=== PATIENT | female | born 1995 | race Caucasian/White ===

== ENCOUNTER 2016-04-16 00:16 | Emergency (ER) | payer BC ==
[2016-04-16] MEDS ORDERED: Sodium Chloride 0.9% 1,000 ML IV ONE (01:26)
--- NOTE | 2016-04-16 01:39 | EDM.PDOC ---
ED HPI GENERAL MEDICAL PROBLEM - General Chief Complaint: Abdominal Pain Stated Complaint: STOMACH PAIN Time Seen by Provider: 04/16/16 01:18 - History of Present Illness INITIAL COMMENTS - FREE TEXT/NARRATIVE: HISTORY AND PHYSICAL: History of present illness: Patient's 20-year-old white female present to observe abdominal pain this is crampy lower states she is due to start her menses but does not have any problems with dysmenorrhea generally she is on oral contraceptives she denies fever chills she did try to induce vomiting x1 there's been no diarrhea no vaginal discharge or bleeding or urinary symptoms Review of systems: As per history of present illness and below otherwise all systems reviewed and negative. Past medical history: As per history of present illness and as reviewed below otherwise noncontributory. Surgical history: As per history of present illness and as reviewed below otherwise noncontributory. Social history: No reported history of drug or alcohol abuse. Family history: As per history of present illness and as reviewed below otherwise noncontributory. Physical exam: HEENT: Atraumatic, normocephalic, pupils reactive, negative for conjunctival pallor or scleral icterus, mucous membranes moist, throat clear, neck supple, nontender, trachea midline. Lungs: Clear to auscultation, breath sounds equal bilaterally, chest nontender. Heart: S1S2, regular, negative for clicks, rubs, or JVD. Abdomen: Soft, nondistended, no localized tenderness Negative for masses or hepatosplenomegaly. Negative for costovertebral tenderness. Pelvis: Stable nontender. Genitourinary: Deferred. Rectal: Deferred. Extremities: Atraumatic, negative for cords or calf pain. Neurovascular unremarkable. Neuro: Awake, alert, oriented. Cranial nerves II through XII unremarkable. Cerebellum unremarkable. Motor and sensory unremarkable throughout. Exam nonfocal. Diagnostics: CBC CMP UA hCG lipase CT abdomen and pelvis Therapeutics: Normal saline 1 L bolus Impression: #1 abdominal pain Definitive disposition and diagnosis as appropriate pending reevaluation and review of above. lower abdominal Pain Score (Numeric/FACES): 6 - Related Data Allergies Allergy/AdvReac Type Severity Reaction Status Date / Time No Known Allergies Allergy Verified 04/16/16 01:16 Home Meds: Home Meds Control Pills 1 tab PO DAILY 04/16/16 [History] ED ROS GENERAL - Review of Systems Review Of Systems: ROS reveals no pertinent complaints other than HPI. ED EXAM, GENERAL - Physical Exam Exam: See Below (See dictation) Course - Vital Signs Last Recorded V/S: Last Vital Signs Temp 37.0 C 04/16/16 01:17 Pulse 92 04/16/16 01:17 Resp 16 04/16/16 01:17 BP 139/78 04/16/16 01:17 Pulse Ox 99 04/16/16 01:17 - Orders/Labs/Meds Orders: Active Orders 24 hr Category Date Time Status Abdomen Pelvis wo Cont [CT] Stat Exams 04/16/16 01:26 Taken UA W/MICROSCOPIC [URIN] Stat Lab 04/16/16 01:25 Uncollected Labs: Laboratory Tests 04/16/16 04/16/16 04/16/16 Range/Units 01:45 01:45 01:45 WBC 15.08 H (4.0-11.0) K/uL RBC 4.74 (4.30-5.90) M/uL Hgb 14.2 (12.0-16.0) g/dL Hct 41.8 (36.0-46.0) % MCV 88.2 (80.0-98.0) fL MCH 30.0 (27.0-32.0) pg MCHC 34.0 (31.0-37.0) g/dL RDW Std Deviation 39.5 (28.0-62.0) fl RDW Coeff of Soila 12 (11.0-15.0) % Plt Count 261 (150-400) K/uL MPV 9.80 (7.40-12.00) fL Neut % (Auto) 79.2 (48.0-80.0) % Lymph % (Auto) 9.8 L (16.0-40.0) % Josephine % (Auto) 10.4 (0.0-15.0) % Eos % (Auto) 0.4 (0.0-7.0) % Baso % (Auto) 0.2 (0.0-1.5) % Neut # 11.9 H (1.4-5.7) K/uL Lymph # 1.5 (0.6-2.4) K/uL Josephine # 1.6 H (0.0-0.8) K/uL Eos # 0.1 (0.0-0.7) K/uL Baso # 0.0 (0.0-0.1) K/uL Nucleated RBC % 0.0 /100WBC Nucleated RBCs # 0 K/uL Sodium 140 (136-146) mmol/L Potassium 3.9 (3.5-5.1) mmol/L Chloride 108 (98-110) mmol/L Carbon Dioxide 23 (21-31) mmol/L BUN 10 (6.0-23.0) mg/dL Creatinine 0.8 (0.6-1.5) mg/dL Est Cr Clr Drug Dosing 103.26 mL/min Estimated GFR (MDRD) > 60.0 ml/min Glucose 120 H (60-110) mg/dL Calcium 8.9 (8.8-10.8) mg/dL Total Bilirubin 0.6 (0.1-1.5) mg/dL AST 19 (5-40) IU/L ALT 15 (8-54) IU/L Alkaline Phosphatase 54 (40-150) Total Protein 7.3 (6.0-8.0) g/dL Albumin 3.9 (3.5-5.0) g/dL Globulin 3.4 (2.0-3.5) g/dL Albumin/Globulin Ratio 1.1 L (1.3-2.8) Lipase 39 (7-80) U/L HCG, Qual NEGATIVE (NEG) Meds: Medications Discontinued Medications Generic Name Dose Route Start Last Admin Trade Name Freq PRN Reason Stop Dose Admin Sodium Chloride 1,000 mls @ 999 mls/hr 04/16/16 01:26 04/16/16 01:50 Normal Saline IV 04/16/16 02:26 999 mls/hr STAT ONE Administration Ketorolac Tromethamine 30 mg 04/16/16 02:05 04/16/16 02:12 Toradol IVPUSH 04/16/16 02:06 30 mg ONETIME ONE Administration Ondansetron HCl 4 mg 04/16/16 02:05 04/16/16 02:10 Zofran IVPUSH 04/16/16 02:06 4 mg ONETIME ONE Administration Departure - Departure Time of Disposition: 02:56 Disposition: Home, Self-Care 01 Condition: good Clinical Impression: Abdominal pain Forms: ED Department Discharge Additional Instructions: The following information is given to patients seen in the emergency department who are being discharged to home. This information is to outline your options for follow-up care. We provide all patients seen in our emergency department with a follow-up referral. The need for follow-up, as well as the timing and circumstances, are variable depending upon the specifics of your emergency department visit. If you don't have a primary care physician on staff, we will provide you with a referral. We always advise you to contact your personal physician following an emergency department visit to inform them of the circumstance of the visit and for follow-up with them and/or the need for any referrals to a consulting specialist. The emergency department will also refer you to a specialist when appropriate. This referral assures that you have the opportunity for followup care with a specialist. All of these measure are taken in an effort to provide you with optimal care, which includes your followup. Under all circumstances we always encourage you to contact your private physician who remains a resource for coordinating your care. When calling for followup care, please make the office aware that this follow-up is from your recent emergency room visit. If for any reason you are refused follow-up, please contact the [facility] emergency department at and asked to speak to the emergency department charge nurse. Followup primary medical doctor one to 2 days return as needed as discussed - My Orders Last 24 Hours: My Active Orders 04/16/16 01:25 UA W/MICROSCOPIC [URIN] Stat 04/16/16 01:26 Abdomen Pelvis wo Cont [CT] Stat - Assessment/Plan Last 24 Hours: My Active Orders 04/16/16 01:25 UA W/MICROSCOPIC [URIN] Stat 04/16/16 01:26 Abdomen Pelvis wo Cont [CT] Stat
[2016-04-16] MEDS ORDERED: Ketorolac 30 MG/ML SDV IVPUSH ONE (02:05)
[2016-04-16] MEDS ORDERED: Ondansetron 4 MG/2 ML SDV IVPUSH ONE (02:05)
[2016-04-16 02:10] LABS: CHLORIDE,CL 108 mmol/L (98-110); SODIUM,NA 140 mmol/L (136-146)
[2016-04-16 03:21] VITALS: BP 122/69
--- NOTE | 2016-04-16 15:16 | CT ---
EXAM DATE: 04/16/16 PATIENT'S AGE: 20 Patient: VICENTE SOLANO Facility: [place], [place] Site . Site : 1995 Study: CT Abdomen/Pelvis [id number] 2:31:07 AM Ordering Physician: Nuvia Quiroz Final Report: INDICATION: generalized abd discomfort since after supper last evening TECHNIQUE: CT abdomen and pelvis without contrast. COMPARISON: None FINDINGS: Lower chest: Unremarkable. Liver: Unremarkable. Spleen: Unremarkable. Pancreas: Unremarkable. Gallbladder and bile ducts: Unremarkable. Kidneys: Unremarkable. No kidney or ureteral stones and no hydronephrosis. Adrenal glands: Unremarkable. GI tract: Moderate amount of stool. . Appendix is not visualized l. Vascular structures: Unremarkable. Lymph nodes: Unremarkable. Miscellaneous: Unremarkable. Trace free fluid. Pelvic Organs: Unremarkable. Bones: Unremarkable for age. IMPRESSION: No acute abnormality of the abdomen and pelvis. Moderate amount of stool. Dictated by Jair Yu MD @ 04/16/2016 2:46:26 AM Dictated by: Jair Yu MD @ 04/16/2016 02:46:47 (Electronic Signature) Report Signed by Proxy and Original Signed Document filed in the Medical Record. [facility]
== END 2016-04-16 03:18 | disposition home or self-care (01) ==
LOC: MW.ED 00:16 → MERGE 00:16 → MW.ED 03:18
DX: R10.30 Lower abdominal pain, unspecified (principal)
CPT/HCPCS: 36415; 74176; 80053; 83690; 84703; 85025; 96361; 96372; 96374; 99284; J1885; J2405; J7040

== ENCOUNTER 2020-05-30 22:26 | Observation (INO) | payer BC ==
[2020-05-30] MEDS ORDERED: Labetalol 100 MG/20 ML MDV IVPUSH ONE ×2 (22:51→23:40)
[2020-05-30] MEDS ORDERED: Sodium Chloride 0.9% 2.5 ML Syringe FLUSH PRN (23:29)
[2020-05-30] MEDS ORDERED: Water For Irrigation,Sterile 1,000 ML Container IRR PRN (23:29)
[2020-05-30] MEDS ORDERED: Lidocaine 1% 50 ML MDV INJECT PRN (23:29)
[2020-05-30] MEDS ORDERED: Sodium Chloride 0.9% 10 ML SDV IV PRN (23:29)
[2020-05-30] MEDS ORDERED: Sodium Chloride 0.9% 10 ML Syringe FLUSH PRN (23:29)
[2020-05-30] MEDS ORDERED: Lactated Ringers 1,000 ML IV SCH (23:30)
--- NOTE | 2020-05-31 00:21 | PCM.LDHP ---
L&D History of Present Illness - General Date of Service: 05/31/20 Admit Problem/Dx: Patient Status Order with Admit Dx/Problem 05/30/20 22:50 Patient Status [ADT] Routine 05/30/20 23:29 Patient Status [ADT] Routine Admission Diagnosis/Problem Admission Diagnosis/Problem Source of Information: Patient History Limitations: Reports: No Limitations - History of Present Illness Introduction:: 24yo at 27w4d GA here with uncontrolled blood pressure and proteinuria. She was seen in clinic yesterday for asymptomatic elevated BPs and was started on labetalol 200mg BID to increase to 400mg BID after 3 days. Patient reports her BPs yesterday were ok, 140's/90's, but today her BPs' have all been >170/100, despite taking 400mg of labetatol this afternoon. She denies HDEZ, RUQ pain, and visual change. She reports some shakiness that started a few hours ago. Reports good urine output. has otherwise been unremarkable so far. - Related Data Allergies/Adverse Reactions: Allergies Allergy/AdvReac Type Severity Reaction Status Date / Time No Known Allergies Allergy Verified 05/21/20 19:13 Home Medications: Home Meds Acetaminophen [Tylenol Extra Strength] 1 - 2 tab PO ASDIRECTED PRN 05/21/20 [History] Pnv No.95/Ferrous Fum/Folic AC [ Tablet] 1 tab PO DAILY 05/21/20 [History] Aspirin [Aspirin EC] 1 tab PO DAILY 05/30/20 [History] Labetalol HCl [Labetalol] 200 mg PO DAILY 05/30/20 [History] Past Medical History HEENT History: Reports: None Cardiovascular History: Reports: None Respiratory History: Reports: None Gastrointestinal History: Reports: None Genitourinary History: Reports: None 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 Neurological History: Reports: None Psychiatric History: Reports: None Endocrine/Metabolic History: Reports: None Dermatologic History: Reports: None - Infectious Disease History Infectious Disease History: Reports: None Social & Family History - Family History Family Medical History: No Pertinent Family History H&P Review of Systems - Review of Systems: Review Of Systems: See Below General: Reports: No Symptoms HEENT: Reports: No Symptoms Pulmonary: Reports: Shortness of Breath Cardiovascular: Reports: No Symptoms Gastrointestinal: Reports: No Symptoms Genitourinary: Reports: No Symptoms Musculoskeletal: Reports: No Symptoms Skin: Reports: No Symptoms Psychiatric: Reports: No Symptoms Neurological: Reports: Other Hematologic/Lymphatic: Reports: No Symptoms Immunologic: Reports: No Symptoms L&D Exam - Exam Exam: See Below - Vital Signs Weight: 79.379 kg - OB Specific Contraction Intensity: None Movement: Active Heart Tones: Present Heart Tones per Min: 141 Heart Rate (FHR) Variability: Moderate (6-25 bmp) - Exam General: Alert, Oriented HEENT: Conjunctiva Clear Neck: Supple Lungs: Clear to Auscultation, Normal Respiratory Effort Cardiovascular: Regular Rate, Regular Rhythm GI/Abdominal Exam: Soft, Non-Tender Extremities: Pedal Edema Skin: Warm, Dry Neurological: Reflexes Equal Bilateral Psychiatric: Alert, Normal Affect, Normal Mood - Patient Data Lab Results Last 24 hrs: Laboratory Results - last 24 hr 05/30/20 Range/Units 23:15 WBC 11.15 H (4.0-11.0) K/uL RBC 3.93 L (4.30-5.90) M/uL Hgb 12.6 (12.0-16.0) g/dL Hct 35.5 L (36.0-46.0) % MCV 90.3 (80.0-98.0) fL MCH 32.1 H (27.0-32.0) pg MCHC 35.5 (31.0-37.0) g/dL RDW Std Deviation 41.9 (28.0-62.0) fl RDW Coeff of Soila 13 (11.0-15.0) % Plt Count 231 (150-400) K/uL MPV 12.00 (7.40-12.00) fL Nucleated RBC % 0.0 /100WBC Nucleated RBCs # 0 K/uL Result Diagrams: 05/30/20 23:15 05/30/20 23:15 - Problem List (1) Pre-eclampsia affecting , antepartum SNOMED Code(s): 948551268, 408450265 ICD Code: O14.90 - UNSPECIFIED PRE-ECLAMPSIA, UNSPECIFIED TRIMESTER Status: Acute Priority: High Current Visit: Yes Problem List Initiated/Reviewed/Updated: Yes Orders Last 24hrs: Active Orders 24 hr Category Date Time Status Patient Status [ADT] Routine ADT 05/30/20 23:29 Active Heart Tones [RC] CONTINUOUS Care 05/30/20 23:29 Active Non Stress Test [RC] PER UNIT ROUTINE Care 05/30/20 22:50 Active May Shower [RC] ASDIRECTED Care 05/30/20 23:29 Active Notify Provider [RC] PRN Care 05/30/20 23:29 Active Up ad Laquita [RC] ASDIRECTED Care 05/30/20 22:50 Active Up ad Laquita [RC] ASDIRECTED Care 05/30/20 23:29 Active Vaginal Exam [RC] Click to Edit Care 05/30/20 22:50 Active Vaginal Exam [RC] PRN Care 05/30/20 23:29 Active Vital Signs [RC] PER UNIT ROUTINE Care 05/30/20 22:50 Active Vital Signs [RC] PER UNIT ROUTINE Care 05/30/20 23:29 Active CMP [COMPREHENSIVE METABOLIC PN,CMP] [CHEM] Routine Lab 05/30/20 23:15 Received LACTATE DEHYDROGENASE,LDH [CHEM] Routine Lab 05/30/20 23:15 Received URIC ACID [CHEM] Routine Lab 05/30/20 23:15 Received Lactated Ringers [Ringers, Lactated] 1,000 ml Med 05/30/20 23:30 Active IV ASDIRECTED Lidocaine 1% [Xylocaine 1%] Med 05/30/20 23:29 Active 50 ml INJECT ONETIME PRN Sodium Chloride 0.9% [Normal Saline] Med 05/30/20 23:29 Active 10 ml IV ASDIRECTED PRN Sodium Chloride 0.9% [Saline Flush] Med 05/30/20 23:29 Active 10 ml FLUSH ASDIRECTED PRN Sodium Chloride 0.9% [Saline Flush] Med 05/30/20 23:29 Active 2.5 ml FLUSH ASDIRECTED PRN Water For Irrigation,Sterile [Sterile Water for Med 05/30/20 23:29 Active Irrigation] 1,000 ml IRR ASDIRECTED PRN Scalp Electrode [WOMSER] Per Unit Routine Oth 05/30/20 23:29 Ordered Peripheral IV Insertion Adult [OM.PC] Routine Oth 05/30/20 23:29 Ordered Resuscitation Status Routine Resus Stat 05/30/20 22:50 Ordered Medication Orders Lactated Ringer's (Ringers, Lactated) 1,000 mls @ 50 mls/hr IV ASDIRECTED NIKITA Lidocaine HCl (Lidocaine 1% 50 Ml Mdv) 50 ml INJECT ONETIME PRN PRN Reason: Laceration repair Sodium Chloride (Sodium Chloride 0.9% 10 Ml Syringe) 10 ml FLUSH ASDIRECTED PRN PRN Reason: Keep Vein Open Sodium Chloride (Sodium Chloride 0.9% 2.5 Ml Syringe) 2.5 ml FLUSH ASDIRECTED PRN PRN Reason: Keep Vein Open Sodium Chloride (Sodium Chloride 0.9% 10 Ml Sdv) 10 ml IV ASDIRECTED PRN PRN Reason: IV Use Sterile Water (Water For Irrigation,Sterile 1,000 Ml Container) 1,000 ml IRR ASDIRECTED PRN PRN Reason: delivery Assessment/Plan Comment:: Discussed diagnosis and possible complications with patient and . Discussed management and treatment. Answered questions. Suggested controlling BPs first, while monitoring signs and Sxs. - Started IV labetalol protocol. Continuous monitoring wellbeing CMP, CBC, Uric acid and LDH sent. Platelets at 231, remaining of the lab pending. Once BP under controlled, will evaluate if patient needs to be started on Mg now, pending results of lab work-up. Plan for possible transfer to [place] or [facility] (higher level NICU) once patient stable. Mg injections if patient develop a seizure. Patient and agreeable with the plan
[2020-05-31] MEDS ORDERED: Labetalol 100 MG/20 ML MDV IVPUSH ONE (00:34)
[2020-05-31 00:40] LABS: BLOOD UREA NITROGEN,BUN 10 mg/dL (7.0-18.0); CARBON DIOXIDE,CO2 21.8 mmol/L (21.0-32.0); CHLORIDE,CL 105 mmol/L (98-107); GLUCOSE RANDOM 72 mg/dL (74-106); POTASSIUM,K 4.3 mmol/L (3.5-5.1); SODIUM,NA 138 mmol/L (136-145)
[2020-05-31] MEDS ORDERED: NIFEdipine 30 MG Tab.ER PO ONE (01:34)
[2020-05-31] MEDS ORDERED: Betamethasone Acetate/Betamethasone Sod Phosphate 30 MG/5 ML MDV IM ONE (09:06)
[2020-05-31] MEDS ORDERED: Magnesium Sulfate/Water 4 GM in Premix Bag 1 BAG IV ONE (09:19)
[2020-05-31] MEDS ORDERED: Calcium Gluconate 10% 1 GM/10 ML SDV IV PRN (09:19)
[2020-05-31] MEDS: Magnesium Sulfate/Water 20 GM/500 ML BAG IV SCH ×2 (10:39→19:23)
--- NOTE | 2020-05-31 11:30 | US ---
INDICATION: follow-up placenta. COMPARISON: 09 April 2020. FINDINGS: Cervix is closed 4.2 cm without funneling. Vertex presentation of intrauterine . Three-vessel cord. Placenta is anterior roughly 5.3 cm from the internal cervical os. It appears sonographically unremarkable. M-mode heart rate 143 beats per minute. The single deepest pocket amniotic fluid 5.1 cm. Symmetric growth with composite estimated gestational age 27 weeks 1 day and estimated date of delivery 29 August 2020. Estimated weight 1023 g. IMPRESSION: 1. Unremarkable appearing anterior placenta. 2. 27 week 1 day intrauterine gestation with estimated date of delivery August. Appropriate interval growth from comparison. Dictated by Anthony Barnett MD @ 05/31/2020 11:28:[address] Anthony Barnett @ May 31 2020 11:28AM
[2020-05-31 17:57] LABS: BLOOD UREA NITROGEN,BUN 14 mg/dL (7.0-18.0); CARBON DIOXIDE,CO2 20.3 mmol/L (21.0-32.0); CHLORIDE,CL 102 mmol/L (98-107); GLUCOSE RANDOM 124 mg/dL (74-106); POTASSIUM,K 4.6 mmol/L (3.5-5.1); SODIUM,NA 134 mmol/L (136-145)
[2020-05-31] MEDS: NIFEdipine 30 MG Tab.ER PO SCH (20:42)
[2020-06-01] MEDS: Magnesium Sulfate/Water 20 GM/500 ML BAG IV SCH (05:05)
[2020-06-01] MEDS: NIFEdipine 30 MG Tab.ER PO SCH (08:50)
[2020-06-01 08:51] VITALS: BP 135/75
[2020-06-01 09:26] LABS: BLOOD UREA NITROGEN,BUN 16 mg/dL (7.0-18.0); CARBON DIOXIDE,CO2 18.1 mmol/L (21.0-32.0); CHLORIDE,CL 99 mmol/L (98-107); GLUCOSE RANDOM 103 mg/dL (74-106); POTASSIUM,K 4.5 mmol/L (3.5-5.1); SODIUM,NA 130 mmol/L (136-145)
[2020-06-01] MEDS ORDERED: Betamethasone Acetate/Betamethasone Sod Phosphate 30 MG/5 ML MDV IM ONE (10:01)
--- NOTE | 2020-06-01 12:26 | PCM.PNLD ---
Labor Progress Note - VS & Meds Vital Signs: Last Vital Signs Temp Pulse Resp BP 135/75 06/01/20 08:50 Pulse Ox Active Medications: Current Medications Calcium Gluconate (Calcium Gluconate 10% 1 Gm/10 Ml Sdv) 1 gm IV ASDIRECTED PRN PRN Reason: respiratory distress Lactated Ringer's (Ringers, Lactated) 1,000 mls @ 50 mls/hr IV ASDIRECTED [facility] Last Infusion: 05/31/20 10:36 Dose: 3 mls/hr Documented by: Magnesium Sulfate (Magnesium Sulfate In Water 20 Gm/500 Ml) 20 gm in 500 mls @ 50 mls/hr IV ASDIRECTED [facility] Last Admin: 06/01/20 05:05 Dose: 1 gm/hr, 25 mls/hr Documented by: Lidocaine HCl (Lidocaine 1% 50 Ml Mdv) 50 ml INJECT ONETIME PRN PRN Reason: Laceration repair Nifedipine (Nifedipine 30 Mg Tab.Er) 60 mg PO BID [facility] Last Admin: 06/01/20 08:50 Dose: 60 mg Documented by: Sodium Chloride (Sodium Chloride 0.9% 10 Ml Syringe) 10 ml FLUSH ASDIRECTED PRN PRN Reason: Keep Vein Open Sodium Chloride (Sodium Chloride 0.9% 2.5 Ml Syringe) 2.5 ml FLUSH ASDIRECTED PRN PRN Reason: Keep Vein Open Sodium Chloride (Sodium Chloride 0.9% 10 Ml Sdv) 10 ml IV ASDIRECTED PRN PRN Reason: IV Use Sterile Water (Water For Irrigation,Sterile 1,000 Ml Container) 1,000 ml IRR ASDIRECTED PRN PRN Reason: delivery Discontinued Medications Betamethasone Acet/Betameth SodPhos (Betamethasone Acetate/Betamethasone Sod Phosphate 30 Mg/5 Ml Mdv) 12 mg IM ONETIME ONE Stop: 05/31/20 09:07 Last Admin: 05/31/20 10:09 Dose: 2 ml Documented by: Betamethasone Acet/Betameth SodPhos (Betamethasone Acetate/Betamethasone Sod Phosphate 30 Mg/5 Ml Mdv) 12 mg IM ONETIME ONE Stop: 06/01/20 10:02 Last Admin: 06/01/20 10:18 Dose: 2 ml Documented by: Magnesium Sulfate 4 gm/ Premix 100 mls @ 300 mls/hr IV BOLUS ONE Stop: 05/31/20 09:38 Last Admin: 05/31/20 10:18 Dose: 300 mls/hr Documented by: Labetalol HCl (Labetalol 100 Mg/20 Ml Mdv) 20 mg IVPUSH ONETIME ONE; Protocol Stop: 05/30/20 22:52 Last Admin: 05/30/20 23:20 Dose: 20 mg Documented by: Labetalol HCl (Labetalol 100 Mg/20 Ml Mdv) 40 mg IVPUSH ONETIME ONE; Protocol Stop: 05/30/20 23:41 Last Admin: 05/30/20 23:41 Dose: 40 mg Documented by: Labetalol HCl (Labetalol 100 Mg/20 Ml Mdv) 80 mg IVPUSH ONETIME ONE; Protocol Stop: 05/31/20 00:35 Last Admin: 05/31/20 00:49 Dose: 80 mg Documented by: Nifedipine (Nifedipine 30 Mg Tab.Er) 60 mg PO ONETIME ONE Stop: 05/31/20 01:35 Last Admin: 05/31/20 02:01 Dose: 60 mg Documented by: - Uterine Contractions Contraction Intensity: None - Monitoring Heart Rate (FHR) Variability: Moderate (6-25 bmp) - Labor Progress (Free Text) Labor Progress: the pt is tranfer for detail see my dictated note.
--- NOTE | 2020-06-01 12:29 | PCM.DCSUM1 ---
Discharge Summary - Hospital Course Diagnosis: Stroke: No - Discharge Data Discharge Date: 06/01/20 Discharge Disposition: Home, Self-Care 01 Condition: Good - Referral to Home Health Primary Care Physician: PCP None - Patient Instructions Diet: Usual Diet as Tolerated Activity: As Tolerated - Discharge Plan Home Medications: Home Meds Acetaminophen [Tylenol Extra Strength] 1 - 2 tab PO ASDIRECTED PRN 05/21/20 [History] Pnv No.95/Ferrous Fum/Folic AC [ Tablet] 1 tab PO DAILY 05/21/20 [History] Aspirin [Aspirin EC] 1 tab PO DAILY 05/30/20 [History] Labetalol HCl [Labetalol] 200 mg PO DAILY 05/30/20 [History] - Discharge Summary/Plan Comment DC Time >30 min.: Yes - General Info Date of Service: 06/01/20 Functional Status: Reports: Pain Controlled - Review of Systems General: Reports: No Symptoms HEENT: Reports: No Symptoms Pulmonary: Reports: No Symptoms Cardiovascular: Reports: No Symptoms Gastrointestinal: Reports: No Symptoms Genitourinary: Reports: No Symptoms Musculoskeletal: Reports: No Symptoms Skin: Reports: No Symptoms Neurological: Reports: No Symptoms Psychiatric: Reports: No Symptoms - Patient Data Vitals - Most Recent: Last Vital Signs Temp Pulse Resp BP 135/75 06/01/20 08:50 Pulse Ox Weight - Most Recent: 81.647 kg Lab Results - Last 24 hrs: Laboratory Results - last 24 hr 05/31/20 05/31/20 05/31/20 Range/Units 14:47 17:10 17:10 WBC 11.89 H (4.0-11.0) K/uL RBC 4.62 (4.30-5.90) M/uL Hgb 14.7 (12.0-16.0) g/dL Hct 41.7 (36.0-46.0) % MCV 90.3 (80.0-98.0) fL MCH 31.8 (27.0-32.0) pg MCHC 35.3 (31.0-37.0) g/dL RDW Std Deviation 42.1 (28.0-62.0) fl RDW Coeff of Soila 13 (11.0-15.0) % Plt Count 270 (150-400) K/uL MPV 11.30 (7.40-12.00) fL Nucleated RBC % 0.0 /100WBC Nucleated RBCs # 0 K/uL Sodium 134 L (136-145) mmol/L Potassium 4.6 (3.5-5.1) mmol/L Chloride 102 (98-107) mmol/L Carbon Dioxide 20.3 L (21.0-32.0) mmol/L BUN 14 (7.0-18.0) mg/dL Creatinine 0.8 (0.6-1.0) mg/dL Est Cr Clr Drug Dosing 103.63 mL/min Estimated GFR (MDRD) > 60.0 ml/min Glucose 124 H (74-106) mg/dL Uric Acid 6.1 (2.6-7.2) mg/dL Calcium 8.8 (8.5-10.1) mg/dL Magnesium 5.3 H (1.8-2.4) mg/dL Total Bilirubin 0.6 (0.2-1.0) mg/dL AST 27 (15-37) IU/L ALT 34 (14-63) IU/L Alkaline Phosphatase 114 (46-116) U/L Total Protein 6.7 (6.4-8.2) g/dL Albumin 2.6 L (3.4-5.0) g/dL Globulin 4.1 H (2.6-4.0) g/dL Albumin/Globulin Ratio 0.6 L (0.9-1.6) Ur Collection Duration Urine Total Volume (800-1800) Ur Total Protein Conc (0-14) mg/dL Ur Total Protein 24 Hr mg/24HRS 05/31/20 06/01/20 06/01/20 Range/Units 20:37 02:48 07:23 WBC (4.0-11.0) K/uL RBC (4.30-5.90) M/uL Hgb (12.0-16.0) g/dL Hct (36.0-46.0) % MCV (80.0-98.0) fL MCH (27.0-32.0) pg MCHC (31.0-37.0) g/dL RDW Std Deviation (28.0-62.0) fl RDW Coeff of Soila (11.0-15.0) % Plt Count (150-400) K/uL MPV (7.40-12.00) fL Nucleated RBC % /100WBC Nucleated RBCs # K/uL Sodium (136-145) mmol/L Potassium (3.5-5.1) mmol/L Chloride (98-107) mmol/L Carbon Dioxide (21.0-32.0) mmol/L BUN (7.0-18.0) mg/dL Creatinine (0.6-1.0) mg/dL Est Cr Clr Drug Dosing mL/min Estimated GFR (MDRD) ml/min Glucose (74-106) mg/dL Uric Acid (2.6-7.2) mg/dL Calcium (8.5-10.1) mg/dL Magnesium 6.3 H 7.0 H (1.8-2.4) mg/dL Total Bilirubin (0.2-1.0) mg/dL AST (15-37) IU/L ALT (14-63) IU/L Alkaline Phosphatase (46-116) U/L Total Protein (6.4-8.2) g/dL Albumin (3.4-5.0) g/dL Globulin (2.6-4.0) g/dL Albumin/Globulin Ratio (0.9-1.6) Ur Collection Duration 24 Urine Total Volume 4025 H (800-1800) Ur Total Protein Conc 82.4 H (0-14) mg/dL Ur Total Protein 24 Hr 3316.6 mg/24HRS 06/01/20 06/01/20 06/01/20 Range/Units 08:49 08:49 08:49 WBC 14.83 H (4.0-11.0) K/uL RBC 4.22 L (4.30-5.90) M/uL Hgb 13.4 (12.0-16.0) g/dL Hct 38.3 (36.0-46.0) % MCV 90.8 (80.0-98.0) fL MCH 31.8 (27.0-32.0) pg MCHC 35.0 (31.0-37.0) g/dL RDW Std Deviation 42.2 (28.0-62.0) fl RDW Coeff of Soila 13 (11.0-15.0) % Plt Count 289 (150-400) K/uL MPV 11.00 (7.40-12.00) fL Nucleated RBC % 0.0 /100WBC Nucleated RBCs # 0 K/uL Sodium 130 L (136-145) mmol/L Potassium 4.5 (3.5-5.1) mmol/L Chloride 99 (98-107) mmol/L Carbon Dioxide 18.1 L (21.0-32.0) mmol/L BUN 16 (7.0-18.0) mg/dL Creatinine 0.8 (0.6-1.0) mg/dL Est Cr Clr Drug Dosing 103.63 mL/min Estimated GFR (MDRD) > 60.0 ml/min Glucose 103 (74-106) mg/dL Uric Acid 6.7 (2.6-7.2) mg/dL Calcium 7.5 L (8.5-10.1) mg/dL Magnesium 6.2 H (1.8-2.4) mg/dL Total Bilirubin 0.5 (0.2-1.0) mg/dL AST 26 (15-37) IU/L ALT 40 (14-63) IU/L Alkaline Phosphatase 106 (46-116) U/L Total Protein 5.9 L (6.4-8.2) g/dL Albumin 2.6 L (3.4-5.0) g/dL Globulin 3.3 (2.6-4.0) g/dL Albumin/Globulin Ratio 0.8 L (0.9-1.6) Ur Collection Duration Urine Total Volume (800-1800) Ur Total Protein Conc (0-14) mg/dL Ur Total Protein 24 Hr mg/24HRS Med Orders - Current: Current Medications Calcium Gluconate (Calcium Gluconate 10% 1 Gm/10 Ml Sdv) 1 gm IV ASDIRECTED PRN PRN Reason: respiratory distress Lactated Ringer's (Ringers, Lactated) 1,000 mls @ 50 mls/hr IV ASDIRECTED [facility] Last Infusion: 05/31/20 10:36 Dose: 3 mls/hr Documented by: Magnesium Sulfate (Magnesium Sulfate In Water 20 Gm/500 Ml) 20 gm in 500 mls @ 50 mls/hr IV ASDIRECTED NIKITA Last Admin: 06/01/20 05:05 Dose: 1 gm/hr, 25 mls/hr Documented by: Lidocaine HCl (Lidocaine 1% 50 Ml Mdv) 50 ml INJECT ONETIME PRN PRN Reason: Laceration repair Nifedipine (Nifedipine 30 Mg Tab.Er) 60 mg PO BID NIKITA Last Admin: 06/01/20 08:50 Dose: 60 mg Documented by: Sodium Chloride (Sodium Chloride 0.9% 10 Ml Syringe) 10 ml FLUSH ASDIRECTED PRN PRN Reason: Keep Vein Open Sodium Chloride (Sodium Chloride 0.9% 2.5 Ml Syringe) 2.5 ml FLUSH ASDIRECTED PRN PRN Reason: Keep Vein Open Sodium Chloride (Sodium Chloride 0.9% 10 Ml Sdv) 10 ml IV ASDIRECTED PRN PRN Reason: IV Use Sterile Water (Water For Irrigation,Sterile 1,000 Ml Container) 1,000 ml IRR ASDIRECTED PRN PRN Reason: delivery Discontinued Medications Betamethasone Acet/Betameth SodPhos (Betamethasone Acetate/Betamethasone Sod Phosphate 30 Mg/5 Ml Mdv) 12 mg IM ONETIME ONE Stop: 05/31/20 09:07 Last Admin: 05/31/20 10:09 Dose: 2 ml Documented by: Betamethasone Acet/Betameth SodPhos (Betamethasone Acetate/Betamethasone Sod Phosphate 30 Mg/5 Ml Mdv) 12 mg IM ONETIME ONE Stop: 06/01/20 10:02 Last Admin: 06/01/20 10:18 Dose: 2 ml Documented by: Magnesium Sulfate 4 gm/ Premix 100 mls @ 300 mls/hr IV BOLUS ONE Stop: 05/31/20 09:38 Last Admin: 05/31/20 10:18 Dose: 300 mls/hr Documented by: Labetalol HCl (Labetalol 100 Mg/20 Ml Mdv) 20 mg IVPUSH ONETIME ONE; Protocol Stop: 05/30/20 22:52 Last Admin: 05/30/20 23:20 Dose: 20 mg Documented by: Labetalol HCl (Labetalol 100 Mg/20 Ml Mdv) 40 mg IVPUSH ONETIME ONE; Protocol Stop: 05/30/20 23:41 Last Admin: 05/30/20 23:41 Dose: 40 mg Documented by: Labetalol HCl (Labetalol 100 Mg/20 Ml Mdv) 80 mg IVPUSH ONETIME ONE; Protocol Stop: 05/31/20 00:35 Last Admin: 05/31/20 00:49 Dose: 80 mg Documented by: Nifedipine (Nifedipine 30 Mg Tab.Er) 60 mg PO ONETIME ONE Stop: 05/31/20 01:35 Last Admin: 05/31/20 02:01 Dose: 60 mg Documented by: - Exam General: Reports: Alert, Oriented HEENT: Reports: Pupils Equal, Pupils Reactive, EOMI, Mucous Membr. Moist/Stephan Neck: Reports: Supple Lungs: Reports: Clear to Auscultation, Normal Respiratory Effort Cardiovascular: Reports: Regular Rate, Regular Rhythm GI/Abdominal Exam: Normal Bowel Sounds, Soft, Non-Tender, No Organomegaly, No Distention, No Abnormal Bruit, No Mass, Pelvis Stable (Female) Exam: Normal External Exam, Normal Speculum Exam, Normal Bimanual Exam Rectal (Female) Exam: Normal Exam, Normal Rectal Tone Back Exam: Reports: Normal Inspection, Full Range of Motion Extremities: Normal Inspection, Normal Range of Motion, Non-Tender, No Pedal Edema, Normal Capillary Refill Skin: Reports: Warm, Dry, Intact Wound/Incisions: Reports: Healing Well Neurological: Reports: No New Focal Deficit Psy/Mental Status: Reports: Alert, Normal Affect, Normal Mood
--- NOTE | 2020-06-01 17:18 | CONS ---
DATE OF CONSULTATION: 06/01/2020 DATE OF : 1995 PRIMARY CARE PHYSICIAN: None PCP Ms. Val Foley is a 24-year-old. She is primigravida. She is 25, +6 weeks. She is followed in our office in this . She had no risk factor other than the fact that she has a family history of elevated blood pressures. She was admitted to the hospital 36 hours ago with an elevated blood pressure. Initially, at the time of admission, her blood pressure was 160/100 and 155/95. The patient started on antihypertensive medication. She initially was managed by Dr. Parker. She was started on Procardia 60 mg p.o. b.i.d. and she needed occasional shot of labetalol of 200 mg IV to control her blood pressure. I took over management of this patient yesterday at 8 in the morning, and at the time of me taking care of her, her vital signs were stable, heart rate was reactive, and her blood pressure was quiescent, ranging anywhere between 145 over 85 to 155 over 95. There was mild swelling on her legs. Other than that, she had no clonus. Reflexes +1. Her initial preeclampsia lab work was essentially normal. So, while I discussed these finding with the patient and my plan on her to start her on magnesium sulfate as per protocol and also give her steroid as per protocol, and then we will repeat her labs every 6 hours for the next 24 hour. We already initiated a 24-hour urine collection for protein, and we are awaiting the result of the protein in the urine to make a final decision. This morning, on June 01, I re-evaluated the patient. Her vital signs were quiescent. Her blood pressure is in the upper normal limit. Her reflexes are +1. There is mild increase in the swelling in her legs and in her face, but her lab work is normal and the 24-hour urine collection of protein shows significant discharge of protein in her urine. Total is 3316 mg per 24 hours. This definitely is significant and will indicate that the patient possibly needed to be delivered. I consulted with Dr. Camarillo, the perinatologist in [place]. The patient expressed her desire if she would be transferred to [place]. I presented the case to Dr. Camarillo, and Dr. Camarillo agreed that the patient needed to be transferred to tertiary center and needed to be managed in a hospital setting. Hopefully, until 24 weeks before she can deliver, but if her condition is worsened, she may have to be delivered early. I contacted Dr. Armstrong who is an senior technical architect on-call in [facility] in [place] and presented the case. Dr. Armstrong was gracious enough to accept the patient, and the patient will be transferred to her as soon as possible, and Dr. Camarillo will be consulted and will be involved in the management of this patient. SHYAM / HEATH /[id number]
== END 2020-06-01 13:10 ==
LOC: MW.OB 22:26 → MW.OBCHECK 22:26 → MW.OB 23:29 → MW.OBCHECK 23:29
PROVIDERS: ADMIT Obstetrics & Gynecology Obstetrics; ATTEND Obstetrics & Gynecology Obstetrics
DX: O14.92 Unspecified pre-eclampsia, second trimester (principal); O16.2 Unspecified maternal hypertension, second trimester; Z3A.27 27 weeks gestation of pregnancy; Z79.899 Other long term (current) drug therapy; Z79.82 Long term (current) use of aspirin
CPT/HCPCS: 36415; 76815; 80053; 83615; 83735; 84156; 84550; 85027; 86850; 86900; 86901; 87635; A9270; J0702; J3475; J3490; J7120; U0002

== ENCOUNTER 2020-08-23 21:45 | Emergency (ER) | payer BC, SELFPAY ==
[2020-08-23] MEDS ORDERED: Labetalol 100 MG/20 ML MDV IVPUSH ONE (22:21)
[2020-08-23] MEDS ORDERED: Magnesium Sulfate/Water 4 GM in Premix Bag 1 BAG IV ONE (22:22)
[2020-08-23] MEDS ORDERED: Magnesium Sulfate/Water 2 GM in Premix Bag 2 BAG IV ONE (22:35)
[2020-08-23] MEDS ORDERED: Magnesium Sulfate/Water 2 GM in Premix Bag 1 BAG IV ONE (23:28)
[2020-08-23 23:30] LABS: BLOOD UREA NITROGEN,BUN 15 mg/dL (7.0-18.0); CHLORIDE,CL 102 mmol/L (98-107); GLUCOSE RANDOM 90 mg/dL (74-106); POTASSIUM,K 3.6 mmol/L (3.5-5.1); SODIUM,NA 137 mmol/L (136-145)
[2020-08-23 23:52] VITALS: BP 130/80; PULSE 80
--- NOTE | 2020-08-24 | EDM.PDOC ---
ED HPI GENERAL MEDICAL PROBLEM - General Chief Complaint: Cardiovascular Problem Stated Complaint: HIGH BP Time Seen by Provider: 08/23/20 22:21 - History of Present Illness INITIAL COMMENTS - FREE TEXT/NARRATIVE: CHIEF COMPLAINT(S): Hypertension HISTORY OF PRESENT ILLNESS: This is a 25-year-old woman with a recent complicated by preeclampsia with delivery and May 2020 who comes to the emergency department with a chief complaint of hypertension. The patient states that prior to the patient did not have any blood pressure issues. She states that during her she had preeclampsia where they did induce labor. After that she was put on labetalol and Procardia at max doses and was recently weaned down and off for approximately 1 week. She states that her fitness manager told her to check her blood pressure randomly throughout the week and day and if it got high to come to the emergency department. She states that she feels some weakness but other than that she denies any headache, chest pain, shortness of breath, abdominal pain, nausea or vomiting. She denies any decreased urination. She states that today prior to arrival she took her blood pressure and it was elevated so they came to the emergency department. She states that she took 100 mg of labetalol prior to arrival. REVIEW OF SYSTEMS: Constitutional: Denies fever, chills. Eyes: Denies eye pain Ears, Nose, Mouth, & Throat: Denies earache Cardiovascular: Denies chest pain, lower extremity edema Respiratory: Denies shortness of breath Gastrointestinal: Denies Nausea, vomiting, diarrhea, hematochezia. Genitourinary: Denies hematuria Skin:Denies a rash MSK: Denies joint pain Neurological: Denies blurred vision, changes in color vision, headache, numbness, tingling, weakness Psychiatric: Denies depression PAST MEDICAL HISTORY: As per history of present illness and as reviewed below otherwise noncontributory. SURGICAL HISTORY: As per history of present illness and as reviewed below otherwise noncontributory. SOCIAL HISTORY: As per history of present illness and as reviewed below otherwise noncontributory. FAMILY HISTORY: As per history of present illness and as reviewed below otherwise noncontributory. EXAMINATION OF ORGAN SYSTEMS/BODY AREAS: Constitutional: Blood pressure is 165/102, heart rate 92, respiratory rate 16 with an oxygen saturation of 97% on room air. Temperature 36.6 General: Well-appearing woman who is in no acute distress Psychiatric: Appropriate mood and affect. Eyes: No scleral icterus or conjunctival erythema pupils are equal round and reactive to light. Extraocular movements intact. No vertical horizontal nystagmus. ENMT: Moist mucous membranes. No pharyngeal erythema Cardiovascular: Regular, rate, and rhythm. No gallops, murmurs, or rubs. Bilateral upper extremity pulses symmetric and intact. No peripheral edema. No JVD. Respiratory: Lungs clear to auscultation bilaterally. No wheezes, rales, or rhonchi. Gastrointestinal: Soft, non-tender, non-distended. Normoactive bowel sounds Genitourinary: No suprapubic tenderness Musculoskeletal: Normal range of motion. Skin: No lesions or abrasions. Neurological: AOx4. CN grossly intact. Strength 5/5 in bilateral upper and lower extremity. Sensation is intact bilaterally in upper and lower extremity. Gait appears normal. MEDICAL DECISION MAKING AND COURSE IN THE ED WITH INTERPRETATION/REVIEW OF DI AGNOSTIC STUDIES: This is a 25-year-old woman with a recent delivery in May 2020 which was complicated by preeclampsia who has been on labetalol and Procardia maxed out with recent wean down approximately 1 week ago who comes to the emergency department with elevated blood pressure. At this time it has been greater than 6 weeks therefore preeclampsia is not likely however we will obtain labs including CBC, CMP, and urinalysis to evaluate for any evidence of preeclampsia. Given the patient took labetalol prior to arrival I did discuss with patient that at this time I would like to hold off on blood pressure medication and reevaluate her blood pressure as she is here in the emergency department. She was amenable to this plan. Laboratory: CBC is unremarkable. CMP is normal. Urinalysis was a clean catch and was negative for leukocyte esterase, negative for nitrites, and negative for blood. No protein interpretation: Negative. After labs and reevaluation the patient's blood pressure had significantly improved. At this time I did discuss with her that given no proteinuria, lower extremity edema, no abnormalities with her liver or her platelets I do not believe this is secondary to preeclampsia and she may have underlying essential hypertension. I did discuss with her that she should follow-up with primary care physician and continue the labetalol since it seems to be working for her. She may also follow-up with fitness manager however given that this might be essential hypertension I discussed a primary care may be more appropriate. She was given strict return precautions. She was amenable discharge and had no further questions. DISPOSITION: The patient was discharged home in stable condition. The patient will follow up with primary care physician or fitness manager within 1 to 5 days CONDITION: Fair PROCEDURES: None FINAL IMPRESSION(S)/DIAGNOSES: 1. Acute asymptomatic hypertension Joel Eaton M.D. - Related Data Allergies Allergy/AdvReac Type Severity Reaction Status Date / Time No Known Allergies Allergy Verified 05/21/20 19:13 Home Meds: Home Meds Acetaminophen [Tylenol Extra Strength] 1 - 2 tab PO ASDIRECTED PRN 05/21/20 [History] Pnv No.95/Ferrous Fum/Folic AC [ Tablet] 1 tab PO DAILY 05/21/20 [History] Aspirin [Aspirin EC] 1 tab PO DAILY 05/30/20 [History] Labetalol HCl [Labetalol] 200 mg PO DAILY 05/30/20 [History] Past Medical History HEENT History: Reports: Impaired Vision Cardiovascular History: Reports: Other (See Below) Other Cardiovascular History: gestational hypertension Respiratory History: Reports: None Gastrointestinal History: Reports: None Genitourinary History: Reports: None FITNESS TEACHER History: Reports: Musculoskeletal History: Reports: None Neurological History: Reports: None Psychiatric History: Reports: None Endocrine/Metabolic History: Reports: None Hematologic History: Reports: None Oncologic (Cancer) History: Reports: None Dermatologic History: Reports: None - Infectious Disease History Infectious Disease History: Reports: Chicken Pox, Other (See Below) Other Infectious Disease History: chlamydia Social & Family History - Family History Family Medical History: No Pertinent Family History HEENT: Reports: Glaucoma Cardiac: Reports: Arrhythmia, Hypertension, [place] Respiratory: Reports: None GI: Reports: None : Reports: None OBGYN: Reports: Musculoskeletal: Reports: Arthritis Neurological: Reports: None Psychiatric: Reports: None Endocrine/Metabolic: Reports: Diabetes, Type I Hematologic: Reports: None Immunologic: Reports: None Dermatologic: Reports: None Oncologic: Reports: None - Tobacco Use Tobacco Use Status *Q: Never Tobacco User - Caffeine Use Caffeine Use: Reports: Coffee - Recreational Drug Use Recreational Drug Use: No ED ROS GENERAL - Review of Systems Review Of Systems: See Below ED EXAM, GENERAL - Physical Exam Exam: See Below Course - Vital Signs Last Recorded V/S: Last Vital Signs Temp 36.6 C 08/23/20 21:51 Pulse 80 08/23/20 23:44 Resp 16 08/23/20 23:44 BP 130/80 08/23/20 23:44 Pulse Ox 98 08/23/20 23:44 - Orders/Labs/Meds Labs: Laboratory Tests 08/23/20 08/23/20 08/23/20 Range/Units 22:40 22:45 22:45 WBC 9.12 (4.0-11.0) K/uL RBC 4.67 (4.30-5.90) M/uL Hgb 14.4 (12.0-16.0) g/dL Hct 41.3 (36.0-46.0) % MCV 88.4 (80.0-98.0) fL MCH 30.8 (27.0-32.0) pg MCHC 34.9 (31.0-37.0) g/dL RDW Std Deviation 38.4 (28.0-62.0) fl RDW Coeff of Soila 12 (11.0-15.0) % Plt Count 222 (150-400) K/uL MPV 10.10 (7.40-12.00) fL Neut % (Auto) 71.3 (48.0-80.0) % Lymph % (Auto) 14.0 L (16.0-40.0) % [place] % (Auto) 12.2 (0.0-15.0) % Eos % (Auto) 2.3 (0.0-7.0) % Baso % (Auto) 0.2 (0.0-1.5) % Neut # (Auto) 6.5 H (1.4-5.7) K/uL Lymph # (Auto) 1.3 (0.6-2.4) K/uL [place] # (Auto) 1.1 H (0.0-0.8) K/uL Eos # (Auto) 0.2 (0.0-0.7) K/uL Baso # (Auto) 0.0 (0.0-0.1) K/uL Nucleated RBC % 0.0 /100WBC Nucleated RBCs # 0 K/uL Sodium 137 (136-145) mmol/L Potassium 3.6 (3.5-5.1) mmol/L Chloride 102 (98-107) mmol/L Carbon Dioxide 26.0 (21.0-32.0) mmol/L BUN 15 (7.0-18.0) mg/dL Creatinine 0.9 (0.6-1.0) mg/dL Est Cr Clr Drug Dosing 87.90 mL/min Estimated GFR (MDRD) > 60.0 ml/min Glucose 90 (74-106) mg/dL Calcium 9.9 (8.5-10.1) mg/dL Total Bilirubin 0.9 (0.2-1.0) mg/dL AST 17 (15-37) IU/L ALT 18 (14-63) IU/L Alkaline Phosphatase 101 (46-116) U/L Total Protein 7.3 (6.4-8.2) g/dL Albumin 4.3 (3.4-5.0) g/dL Globulin 3.0 (2.6-4.0) g/dL Albumin/Globulin Ratio 1.4 (0.9-1.6) Urine Color YELLOW Urine Appearance CLEAR Urine pH 6.5 (5.0-8.0) Ur Specific [place] <= 1.005 (1.001-1.035) Urine Protein NEGATIVE (NEGATIVE) mg/dL Urine Glucose (UA) NEGATIVE (NEGATIVE) mg/dL Urine Ketones NEGATIVE (NEGATIVE) mg/dL Urine Occult Blood NEGATIVE (NEGATIVE) Urine Nitrite NEGATIVE (NEGATIVE) Urine Bilirubin NEGATIVE (NEGATIVE) Urine Urobilinogen 0.2 (<2.0) EU/dL Ur Leukocyte Esterase NEGATIVE (NEGATIVE) Meds: Medications Discontinued Medications Generic Name Dose Route Start Last Admin Trade Name Be PRN Reason Stop Dose Admin Magnesium Sulfate 4 gm/ Premix 100 mls @ 50 mls/hr 08/23/20 22:22 08/23/20 22:32 IV 08/24/20 00:21 Not Given ONETIME ONE Magnesium Sulfate 2 gm/ Premix 0 mls @ 25 mls/hr 08/23/20 22:35 08/23/20 22:45 IV 08/23/20 22:36 25 mls/hr Q1H ONE Administration Magnesium Sulfate 2 gm/ Premix 50 mls @ 12.5 mls/hr 08/23/20 23:28 08/23/20 23:44 IV 08/24/20 03:27 Not Given ONETIME ONE Magnesium Sulfate 2 gm/ Premix 50 mls @ 12.5 mls/hr 08/24/20 00:09 08/24/20 00:11 IV 08/24/20 04:08 Not Given ONETIME ONE Magnesium Sulfate Confirm 08/24/20 00:10 Magnesium Sulfate In Water 2 Gm/50 Ml Administered 08/24/20 00:11 Dose 2 gm in 50 mls @ as directed .ROUTE .STK-MED ONE Labetalol HCl 20 mg 08/23/20 22:21 08/23/20 22:46 Labetalol 100 Mg/20 Ml Mdv IVPUSH 08/23/20 22:22 Not Given ONETIME ONE Protocol Departure - Departure Time of Disposition: 23:59 Disposition: Home, Self-Care 01 Condition: Fair Clinical Impression: Hypertension Instructions: Hypertension, Hypertension, Adult, [id number] Referrals: Geo Chaney MD [Primary Care Provider] - Forms: ED Department Discharge Additional Instructions: Your evaluated today on an emergent basis. At this time your blood pressure did return to normal and all of your lab work-up was normal. At this time I do not believe you are experiencing preeclampsia after . It has been greater than 6 weeks of this is unlikely. I do recommend that you check your blood pressure every morning at the same time. It is an inaccurate if you take it at random times throughout the day. I would like you to call tomorrow and make an appointment with your fitness manager for reevaluation and make an appointment with your primary care physician as you may have underlying essential hypertension. Please return to the emergency department if you have any headache, blurry vision, swelling of your lower extremities, chest pain or shortness of breath. [facility] - [facility] [address] [place] [id number] [address] The patient is informed of any results of their evaluation and diagnostic workup and all questions are answered. They are given discharge instructions and return precautions. The patient is stable for discharge. The patient states they understand and agree with the plan and that they will return if their symptoms get worse or if they have any new concerns. The following information is given to patients seen in the emergency department who are being discharged to home. This information is to outline your options for follow-up care. We provide all patients seen in our emergency department with a follow-up referral. The need for follow-up, as well as the timing and circumstances, are variable depending upon the specifics of your emergency department visit. If you don't have a primary care physician on staff, we will provide you with a referral. We always advise you to contact your personal physician following an emergency department visit to inform them of the circumstance of the visit and for follow-up with them and/or the need for any referrals to a consulting specialist. The emergency department will also refer you to a specialist when appropriate. This referral assures that you have the opportunity for follow-up care with a specialist. All of these measure are taken in an effort to provide you with optimal care, which includes your follow-up. Under all circumstances we always encourage you to contact your private physician who remains a resource for coordinating your care. When calling for follow-up care, please make the office aware that this follow-up is from your recent emergency room visit. If for any reason you are refused follow-up, please contact the [facility] Emergency Department at and asked to speak to the emergency department charge nurse. Sepsis Event Note (ED) - Evaluation Sepsis Screening Result: No Definite Risk
[2020-08-24] MEDS ORDERED: Magnesium Sulfate/Water 2 GM in Premix Bag 1 BAG IV ONE (00:09)
[2020-08-24] MEDS ORDERED: Magnesium Sulfate/Water 2 GM/50 ML BAG ONE (00:10)
== END 2020-08-24 00:11 | disposition home or self-care (01) ==
LOC: MW.ED 21:45
DX: I10 Essential (primary) hypertension (principal); Z79.82 Long term (current) use of aspirin
CPT/HCPCS: 36415; 80053; 81003; 85025; 96365; 99283; J3475

== ENCOUNTER 2021-02-04 20:27 | Emergency (ER) | payer BC ==
--- NOTE | 2021-02-04 20:55 | EDM.PDOC ---
ED HPI GENERAL MEDICAL PROBLEM - General Chief Complaint: Cardiovascular Problem Stated Complaint: high blood pressure Time Seen by Provider: 02/04/21 20:29 Source of Information: Reports: Patient History Limitations: Reports: No Limitations - History of Present Illness INITIAL COMMENTS - FREE TEXT/NARRATIVE: 25-year-old female past medical history hypertension, preeclampsia presents for high blood pressure. Patient notes for the last couple days she has felt generalized weakness. She is also had some discomfort in her chest on and off. She notes that she takes labetalol twice daily for blood pressure and she is good about taking it. She does have a primary care physician that she can follow-up with. She has not noticed any changes in urinary habits. She does have a mild generalized headache. - Related Data Allergies Allergy/AdvReac Type Severity Reaction Status Date / Time No Known Allergies Allergy Verified 02/04/21 20:46 Home Meds: Home Meds Acetaminophen [Tylenol Extra Strength] 1 - 2 tab PO ASDIRECTED PRN 05/21/20 [History] Pnv No.95/Ferrous Fum/Folic AC [ Tablet] 1 tab PO DAILY 05/21/20 [History] Aspirin [Aspirin EC] 1 tab PO DAILY 05/30/20 [History] Labetalol HCl [Labetalol] 200 mg PO DAILY 05/30/20 [History] Past Medical History HEENT History: Reports: Impaired Vision Cardiovascular History: Reports: Other (See Below) Other Cardiovascular History: gestational hypertension Respiratory History: Reports: None Gastrointestinal History: Reports: None Genitourinary History: Reports: None F[employer]ER History: Reports: Musculoskeletal History: Reports: None Neurological History: Reports: None Psychiatric History: Reports: None Endocrine/Metabolic History: Reports: None Hematologic History: Reports: None Oncologic (Cancer) History: Reports: None Dermatologic History: Reports: None - Infectious Disease History Infectious Disease History: Reports: Chicken Pox, Other (See Below) Other Infectious Disease History: chlamydia Social & Family History - Family History Family Medical History: No Pertinent Family History HEENT: Reports: Glaucoma Cardiac: Reports: Arrhythmia, Hypertension, SC Respiratory: Reports: None GI: Reports: None : Reports: None OBGYN: Reports: Musculoskeletal: Reports: Arthritis Neurological: Reports: None Psychiatric: Reports: None Endocrine/Metabolic: Reports: Diabetes, Type I Hematologic: Reports: None Immunologic: Reports: None Dermatologic: Reports: None Oncologic: Reports: None - Caffeine Use Caffeine Use: Reports: Coffee ED ROS GENERAL - Review of Systems Review Of Systems: Comprehensive ROS is negative, except as noted in HPI. ED EXAM, GENERAL - Physical Exam Exam: See Below Exam Limited By: No Limitations General Appearance: Alert, WD/WN, No Apparent Distress Ears: Hearing Grossly Normal Throat/Mouth: Normal Voice, No Airway Compromise Head: Atraumatic, Normocephalic Respiratory/Chest: No Respiratory Distress, Lungs Clear, Normal Breath Sounds, No Accessory Muscle Use Cardiovascular: Normal Peripheral Pulses, Regular Rate, Rhythm, No Edema Extremities: Normal Inspection Neurological: Alert, Normal Cognition, Normal Gait Psychiatric: Normal Affect, Normal Mood, Anxious Skin Exam: Warm, Dry, Intact, Normal Color #1 Interpretation EKG Date: 02/04/21 Time: 21:07 Rhythm: NSR Rate (Beats/Min): 89 [place]: Normal P-Wave: Present QRS: Normal ST-T: Normal QT: Normal SC/PQ Interval: 123 Comparison: NA - No Prior EKG EKG Interpretation Comments: unremarkable EKG Course - Vital Signs Last Recorded V/S: Last Vital Signs Temp 97.4 F 02/04/21 20:47 Pulse 88 02/04/21 20:47 Resp 16 02/04/21 20:47 BP 135/105 H 02/04/21 20:47 Pulse Ox 98 02/04/21 20:47 - Orders/Labs/Meds Labs: Laboratory Tests 02/04/21 02/04/21 Range/Units 21:20 21:20 WBC 7.42 (4.0-11.0) K/uL RBC 4.65 (4.30-5.90) M/uL Hgb 14.0 (12.0-16.0) g/dL Hct 40.6 (36.0-46.0) % MCV 87.3 (80.0-98.0) fL MCH 30.1 (27.0-32.0) pg MCHC 34.5 (31.0-37.0) g/dL RDW Std Deviation 42.0 (28.0-62.0) fl RDW Coeff of Soila 13 (11.0-15.0) % Plt Count 245 (150-400) K/uL MPV 9.90 (7.40-12.00) fL Neut % (Auto) 64.0 (48.0-80.0) % Lymph % (Auto) 21.8 (16.0-40.0) % Hardin % (Auto) 12.3 (0.0-15.0) % Eos % (Auto) 1.5 (0.0-7.0) % Baso % (Auto) 0.4 (0.0-1.5) % Neut # (Auto) 4.8 (1.4-5.7) K/uL Lymph # (Auto) 1.6 (0.6-2.4) K/uL Hardin # (Auto) 0.9 H (0.0-0.8) K/uL Eos # (Auto) 0.1 (0.0-0.7) K/uL Baso # (Auto) 0.0 (0.0-0.1) K/uL Nucleated RBC % 0.0 /100WBC Nucleated RBCs # 0 K/uL Sodium 138 (136-145) mmol/L Potassium 3.6 (3.5-5.1) mmol/L Chloride 102 (98-107) mmol/L Carbon Dioxide 25.4 (21.0-32.0) mmol/L BUN 17 (7.0-18.0) mg/dL Creatinine 0.9 (0.6-1.0) mg/dL Est Cr Clr Drug Dosing 91.31 mL/min Estimated GFR (MDRD) > 60.0 ml/min Glucose 95 (74-106) mg/dL Calcium 9.1 (8.5-10.1) mg/dL Troponin I < 0.050 (0.000-0.056) ng/mL Meds: Medications Discontinued Medications Generic Name Dose Route Start Last Admin Trade Name Freq PRN Reason Stop Dose Admin Acetaminophen 1,000 mg 02/04/21 21:00 02/04/21 21:08 Acetaminophen 500 Mg Tab PO 02/04/21 21:01 1,000 mg ONETIME ONE Administration - Re-Assessments/Exams Free Text/Narrative Re-Assessment/Exam: 02/04/21 21:00 Will get basic labs, EKG, Covid. 02/04/21 21:58 Labs are unremarkable. Will discharge with PMD follow-up Departure - Departure Time of Disposition: 21:58 Disposition: Home, Self-Care 01 Condition: Good Clinical Impression: Hypertension Qualifiers: Hypertension type: unspecified Qualified Code(s): I10 - Essential (primary) hypertension Referrals: Rachel Caro PA [Primary Care Provider] - Forms: ED Department Discharge Additional Instructions: Your labs are unremarkable. Your EKG looks normal. Your blood pressure is elevated. Please keep a log of your blood pressure taking it sometime in the morning, sometime in the afternoon, and sometime before bed for the next week. Make a follow-up appointment with your primary care physician and share this information with him or her so that together you can develop a plan for managing your high blood pressure. If you are experiencing sudden onset worst headache of life, difficulty moving one side of your body, chest pain, or if you notice that you are not making any urine these are reasons to come back to the emergency department. Otherwise hypertension is best managed by your primary care physician so that they can follow-up with you and make sure that the medicines are working for you. The following information is given to patients seen in the emergency department who are being discharged to home. This information is to outline your options for follow-up care. We provide all patients seen in our emergency department with a follow-up referral. The need for follow-up, as well as the timing and circumstances, are variable depending upon the specifics of your emergency department visit. If you don't have a primary care physician on staff, we will provide you with a referral. We always advise you to contact your personal physician following an emergency department visit to inform them of the circumstance of the visit and for follow-up with them and/or the need for any referrals to a consulting specialist. The emergency department will also refer you to a specialist when appropriate. This referral assures that you have the opportunity for follow-up care with a specialist. All of these measure are taken in an effort to provide you with optimal care, which includes your follow-up. Under all circumstances we always encourage you to contact your private physician who remains a resource for coordinating your care. When calling for follow-up care, please make the office aware that this follow-up is from your recent emergency room visit. If for any reason you are refused follow-up, please contact the [facility] Emergency Department at and asked to speak to the emergency department charge nurse. Please follow up with your primary care physician. If you do not have a primary care physician, see below: [facility] [address], [place] [id number] [facility] [address] [place], [place] [id number] [facility] [address] [place] [address] Sepsis Event Note (ED) - Evaluation Sepsis Screening Result: No Definite Risk - Focused Exam Vital Signs: Vital Signs Temp Pulse Resp BP Pulse Ox 02/04/21 20:47 97.4 F 88 16 135/105 H 98
[2021-02-04] MEDS ORDERED: Acetaminophen 500 MG Tab PO ONE (21:00)
[2021-02-04 21:46] LABS: BLOOD UREA NITROGEN,BUN 17 mg/dL (7.0-18.0); CARBON DIOXIDE,CO2 25.4 mmol/L (21.0-32.0); CHLORIDE,CL 102 mmol/L (98-107); GLUCOSE RANDOM 95 mg/dL (74-106); POTASSIUM,K 3.6 mmol/L (3.5-5.1); SODIUM,NA 138 mmol/L (136-145)
[2021-02-04 22:08] VITALS: BP 127/85; PULSE 86
== END 2021-02-04 22:07 | disposition home or self-care (01) ==
LOC: MW.ED 20:27
DX: I10 Essential (primary) hypertension (principal); Z79.82 Long term (current) use of aspirin
CPT/HCPCS: 36415; 80048; 84484; 85025; 93005; 99283; A9270